=== PATIENT | male | born 1950 | race Caucasian/White ===

== ENCOUNTER 2020-05-04 07:12 | Day surgery (SDC) | payer MEDICARE, BC ==
[2020-04-27 15:05] LABS: BASOPHILS # (AUTO) 0.1 X10'3 (0-0.2); EOSINOPHILS # (AUTO) 0.1 X10'3 (0-0.9); EOSINOPHILS % (AUTO) 2.3 % (0-6); LYMPHOCYTES # (AUTO) 1.2 X10'3 (1.1-4.8); LYMPHOCYTES % (AUTO) 18.9 % (21-51); MEAN CORPUSCULAR HEMOGLOBIN 29.8 PG (27.0-31.0); MEAN CORPUSCULAR VOLUME 85.1 FL (78-98); MEAN PLATELET VOLUME 8.4 FL (7.4-10.4); MONOCYTES # (AUTO) 0.5 X10'3 (0-0.9); MONOCYTES % (AUTO) 8.6 % (2-12); NEUTROPHILS # (AUTO) 4.2 X10'3 (1.8-7.7); NEUTROPHILS % (AUTO) 69.2 % (42-75); PRE OP HEMATOCRIT 39.8 % (42.0-52.0); PRE OP HEMOGLOBIN 13.9 g/dL (14.0-17.9); PRE OP PLATELET COUNT 146 X10'3 (140-440); RED BLOOD COUNT 4.67 X10'6 (4.70-6.10); RED CELL DISTRIBUTION WIDTH 13.8 % (11.5-14.5)
[2020-04-27 15:13] LABS: PRE OP INR 1.1 INR; PRE OP PROTIME 11.1 SECONDS (9.0-12.0)
[2020-04-27 15:19] LABS: ALBUMIN 3.5 G/DL (3.4-5.0); ALBUMIN/GLOBULIN RATIO 1.1 (1.1-1.5); ALKALINE PHOSPHATASE 72 IU/L (46-116); BLOOD UREA NITROGEN 20 MG/DL (7-18); BUN/CREATININE RATIO 19.6 (5.4-32.0); CALCIUM 8.5 MG/DL (8.5-10.1); CHLORIDE 104 MMOL/L (99-107); CREATININE 1.02 MG/DL (0.60-1.10); PRE OP ALT 43 U/L (30-65); PRE OP ANION GAP 9 (8-16); PRE OP AST 19 U/L (10-37); PRE OP BILIRUB, TOTAL 0.4 MG/DL (0.0-1.0); PRE OP GLUCOSE 154 MG/DL (70-104); PRE OP SODIUM 141 MMOL/L (135-145); TOTAL PROTEIN 6.8 G/DL (6.4-8.2); eGFR 72 ML/MIN
[~2020-05-04] VITALS: Ht 177.8 cm; Wt 122.2 kg
[~2020-05-04 07:12] MED LIST: ASPI-529 PO; ATOR-2 PO; BUPIVAcaine/PF 2.5mg/ml (0.25%) 10ml vial ONE; CLON-418 PO; CLOP75TA35 PO; DOCUMENT DATE & TIME OF BETA-BLOCKER PO ONE; DOXY-224 PO; HYDR25TA4 PO; INDO50CA96 PO; LIDOcaine 0.5% (5mg/ml) 50ml vial ONE; MELO-102 PO; METO200T49 PO; OMEG1CAP46 PO; OMEP40CA13 PO; [UNRECOGNIZED DRUG - CODE] PO; ceFAZolin 2gm in dextrose, iso 50 ML IV ONE; famotidine 20mg tablet PO ONE; ringers solution, lacted 1,000 ML IV SCH
[2020-05-04] MEDS ORDERED: morphine 2 MG/ML inj. syringe IV PRN (08:25)
[2020-05-04] MEDS ORDERED: ringers solution, lacted 1,000 ML IV SCH (08:25)
[2020-05-04] MEDS ORDERED: ondansetron/PF 4mg/2ml inj IV PRN (08:25)
[2020-05-04] MEDS ORDERED: morphine 4 MG/ML inj SYRINge IV PRN (08:25)
[2020-05-04] MEDS ORDERED: hydrALAZINE 20mg/ml inj. IV PRN (08:25)
[2020-05-04] MEDS ORDERED: fentaNYL/PF 50MCG/1 ML 2ML syringe IV PRN ×2 (08:25)
[2020-05-04] MEDS ORDERED: labetalol 20mg/4ml (5mg/ml) syringe IV PRN (08:25)
[2020-05-04] MEDS ORDERED: fentaNYL/PF 50MCG/1 ML 2ML syringe ONE (09:48)
[2020-05-04] MEDS ORDERED: MIDAZolam 5mg/5ml vial ONE (09:48)
[2020-05-04] MEDS ORDERED: labetalol 20mg/4ml (5mg/ml) syringe IV ONE (09:53)
[2020-05-04] MEDS ORDERED: ketorolac trometh. 30mg/ml inj. ONE (10:02)
[2020-05-04 10:26] VITALS: BP 124/62
--- NOTE | 2020-05-04 10:26 | NUR ---
Received from OR via [facility], accompanied by Anesthesiologist Dr. Reid and report given by Anesthesiolgist. Merary denies pain. A&O, no oxygen in use. Left forearm 20gPIV, right arm dressing CDI from mid hand to elbow,splint. VSS. Addendum: 05/04/20 at 1040 by Kaleigh Escobedo RN Amended: Links added.
[2020-05-04 10:30] VITALS: BP 147/100
[2020-05-04 10:33] VITALS: BP 151/81
[2020-05-04 10:36] VITALS: BP 151/81
[2020-05-04 10:40] VITALS: BP 113/55
--- NOTE | 2020-05-04 11:06 | NUR ---
Patient discharged home with daughter, Deondre. [place] in bag. Patient educated about splint, showering, ice, sling, pain medication and follow up appointment. VSS. No oxygen need. All belongings accounted for. Patient denies pain. Dressing CDI, sensation, circulation, cap refill intact. Addendum: 05/04/20 at 1120 by Kaleigh Escobedo RN Amended: Links added.
== END 2020-05-04 11:06 | disposition home or self-care (01) ==
LOC: PAS 07:12
PROVIDERS: ATTEND Orthopaedic Surgery Hand Surgery
DX: M70.21 Olecranon bursitis, right elbow (principal); Z20.828 Contact with and (suspected) exposure to other viral communicable diseases; Z98.890 Other specified postprocedural states; Z79.899 Other long term (current) drug therapy; Z72.89 Other problems related to lifestyle
CPT/HCPCS: 24105; 36415; 80053; 82948; 85025; 85610; 85730; 87635; 93005; A6222; J1885; J2001; J2250; J3010; J3490; J7120; A4215; A4618; A6449; A7000

== ENCOUNTER 2023-02-08 15:26 | Outpatient (CLI) | payer MEDICARE, OTHER ==
[~2023-02-08 15:26] MED LIST changes: -BUPIVAcaine/PF 2.5mg/ml (0.25%) 10ml vial ONE; +CLOP75TA34 PO; -CLOP75TA35 PO; -DOCUMENT DATE & TIME OF BETA-BLOCKER PO ONE; -LIDOcaine 0.5% (5mg/ml) 50ml vial ONE; -OMEP40CA13 PO; +OMEP40CA21 PO; -ceFAZolin 2gm in dextrose, iso 50 ML IV ONE; -famotidine 20mg tablet PO ONE; -ringers solution, lacted 1,000 ML IV SCH
== END 2023-02-08 23:59 | disposition home or self-care (01) ==
LOC: RAD 15:26
PROVIDERS: ATTEND Otolaryngology
DX: R13.14 Dysphagia, pharyngoesophageal phase (principal)
CPT/HCPCS: 74230

== ENCOUNTER 2025-05-06 10:24 | Outpatient (CLI) | payer MEDICARE, OTHER ==
[~2025-05-06 10:24] MED LIST changes: +IODIXANOL 320 MG/ML INFUS..BTL 100ML IV ONE; +METO200T37 PO; -METO200T49 PO
[2025-05-06 10:57] LABS: MEAN PLATELET VOLUME 8.6 FL (7.4-10.4); RED CELL DISTRIBUTION WIDTH 15.1 % (11.5-14.5)
[2025-05-06 11:09] LABS: APTT 31 SECONDS (22-32); INR 2.1 INR
[2025-05-06 12:20] LABS: CREATININE 1.40 MG/DL (0.60-1.10); TOTAL CARBON DIOXIDE 24.5 MMOL/L (24-32); eGFR 50 ML/MIN
[2025-05-06 12:23] LABS: PRO BRAIN NATRIURETIC PEPTIDE 6650 PG/ML (0-125)
--- NOTE | 2025-05-06 13:05 | RADIOLOGY REPORT ---
DI CHEST,TWO VIEWS CLINICAL HISTORY: SOB TAVR COMPARISON: None TECHNIQUE: Frontal and lateral view of the chest was obtained FINDINGS: Lines and Tubes: left pacemaker Lungs: No focal consolidation. Pleura: No effusion. No pneumothorax. Cardiomediastinal contours: Unremarkable Bones: No acute osseous abnormality. IMPRESSION: No acute cardiopulmonary disease.
--- NOTE | 2025-05-06 18:33 | RADIOLOGY REPORT ---
CT CTA TAVR INDICATION: Stenosis TECHNIQUE: Gated CT angiography of the heart was performed along with CT angiography of the lower neck, chest, abdomen, and pelvis. MIP, MPR, and 3-D images were obtained. Measurements were performed on the [employer] workstation. All CT scans at this facility use dose modulation, iterative reconstruction, and/or weight based dosing when appropriate to reduce radiation dose to as low as reasonably achievable. COMPARISON: None available at the time of dictation. FINDINGS: ANNULAR PLANE DISTANCE: 27.8 x 24.8 mm AREA: 5.09 cm2 AVERAGE DIAMETER: 26.3 mm PERIMETER: 81.1 mm LEFT CORONARY ARTERY HEIGHT ABOVE ANNULAR PLANE: 16.3 mm RIGHT CORONARY ARTERY HEIGHT ABOVE ANNULAR PLANE: 18.2 mm LEFT CORONARY SINUS DIAMETER: 34.3 mm RIGHT CORONARY SINUS DIAMETER: 29.8 mm NONCORONARY CORONARY SINUS DIAMETER: 34.1 mm SINOTUBULAR JUNCTION DIAMETER: 22.1 mm RIGHT COMMON ILIAC ARTERY MINIMAL DIMENSIONS: 9.78 mm RIGHT EXTERNAL ILIAC ARTERY MINIMAL DIMENSIONS: 9.11 mm RIGHT COMMON FEMORAL ARTERY MINIMAL DIMENSIONS: 8.57 mm LEFT COMMON ILIAC ARTERY MINIMAL DIMENSIONS: 9.54 mm LEFT EXTERNAL ILIAC ARTERY MINIMAL DIMENSIONS: 9.9 mm LEFT COMMON FEMORAL ARTERY MINIMAL DIMENSIONS: 8.93 mm [LOWER NECK]: Unremarkable [LYMPH NODES/MEDIASTINUM]: No abnormal lymph nodes by CT size criteria [CARDIOVASCULAR]: [id number] cardiomegaly. Postsurgical changes related to prior coronary artery bypass graft surgery. Aortic valvular calcifications. Coronary artery calcifications. [LUNG PARENCHYMA/PLEURAL SPACE]: Medium right and small left-sided pleural effusions. Scattered cystic lung change in bilateral lungs with the areas of ground-glass likely related to pulmonary alveolar edema [CHEST WALL]: Unremarkable. [LIVER]: Normal hepatic size without suspicious focal lesion. [SPLEEN]: Unremarkable. [PANCREAS]: Unremarkable. [GALLBLADDER AND BILIARY TREE]: No cholelithiasis. No biliary dilatation. [ADRENAL GLANDS]: Unremarkable [KIDNEYS]: No hydronephrosis. No nephroureterolithiasis. No suspicious focal lesion. [BLADDER]: Minimal possible marginal bladder wall edema versus inflammation correlate with urinalysis and imaging finding may be exaggerated secondary to trace ascites [PELVIC ORGANS]: [id number] prostatomegaly [BOWEL/MESENTERY]: Stomach is decompressed however question slight gastric mucosal hyperenhancement correlate for underlying acute and/or chronic gastritis. No CT evidence of bowel obstruction. Mild stool burden. [ASCITES]: Small volume pelvic ascites [LYMPHADENOPATHY]: No pathologically enlarged lymph nodes by CT size criteria [VASCULATURE]: Vascular calcifications. [ABDOMINAL WALL]: Skin thickening with subcutaneous adipose tissue edema along the lower anterior aspect of the abdominal wall/pelvis correlate for panniculitis. [MUSCULOSKELETAL]: No acute fracture or aggressive focal osseous lesion. Multifocal degenerative change of the visualized spine. IMPRESSION: 1. Calculations for TAVR evaluation as above. 2. Volume overload with trace ascites and anasarca. 3. Skin thickening with subcutaneous adipose tissue edema along the lower anterior aspect of the abdominal wall/pelvis correlate for panniculitis. Medium right and small left pleural effusions with suspected pulmonary alveolar edema associated with cardiomegaly
== END 2025-05-06 23:59 | disposition home or self-care (01) ==
LOC: RAD 10:24
PROVIDERS: ATTEND Internal Medicine Cardiovascular Disease
DX: I35.0 Nonrheumatic aortic (valve) stenosis (principal); R06.02 Shortness of breath; I65.29 Occlusion and stenosis of unspecified carotid artery; I87.8 Other specified disorders of veins; N40.0 Benign prostatic hyperplasia without lower urinary tract symptoms; R60.0 Localized edema
CPT/HCPCS: 36415; 71046; 71275; 74174; 75572; 80053; 83880; 85025; 85610; 85730; Q9967